=== PATIENT | female | born 1940 | race Caucasian/White ===

== ENCOUNTER 2021-06-18 13:18 | Inpatient (IN) ==
[2021-06-18] MEDS ORDERED: MORPHINE 2 MG/1 ML SYRINGE IV STA (14:27)
[2021-06-18] MEDS ORDERED: ONDANSETRON 4 MG/2 ML VIAL IV STA (14:27)
[2021-06-18 14:52] LABS: Basophils # 0.1 10*3/uL (0.0-0.2); Basophils % 0.4 % (0.0-0.8); Eosinophils # 0.1 10*3/uL (0.0-0.87); Eosinophils % 0.4 % (0.00-10.9); Hematocrit 45.1 VOL% (35.7-47.0); Hemoglobin 13.8 GM/DL (12.0-16.0); Immature Granulocytes % 0.5 %; Immature Granulocytes Absolute 0.08 #; Lymphocytes # 1.2 10*3/uL (1.4-4.0); Lymphocytes % 8.2 % (21.3-54.2); Mean Corpuscular HGB Conc 30.6 GM/DL (32-36); Mean Corpuscular Volume 94.4 FL (87-102); Mean Platelet Volume 10.2 FL (9.6-12.0); Monocytes % 4.2 % (1.7-12.7); Neutrophils % 86.3 % (38.7-73.9); Platelet Count 236 T/CUMM (130-400); Red Blood Count 4.78 MC/CUMM (3.8-5.5); Red Cell Distribution Width 13.6 % (9.3-17.3); White Blood Count 14.6 T/CUMM (4-12)
[2021-06-18 15:04] LABS: INR 0.9; PT Patient Result 10.7 SECS (10.5-12.0); Partial Thromboplastin Time 25.9 SECS (23.8-32.1)
[2021-06-18 15:10] LABS: Albumin 3.4 G/DL (3.4-5.0); Bilirubin,Total 2.2 MG/DL (0.20-1.00); Calcium 10.2 MG/DL (8.5-10.1); Osmolality,Calculated 288.8 MOS/KG (273-304); Potassium 4.1 MMOL/L (3.5-5.1); Total Protein 6.8 G/DL (6.4-8.2)
[2021-06-18] MEDS ORDERED: MORPHINE 2 MG/1 ML SYRINGE IV PRN ×2 (15:31→15:58)
[2021-06-18] MEDS ORDERED: CALCIUM CARBONATE CHEW 500 MG TABLET PO PRN (15:31)
[2021-06-18] MEDS ORDERED: ALBUTEROL/IPRATROPIUM 3 ML NEB RESP TX PRN (15:31)
[2021-06-18] MEDS ORDERED: ONDANSETRON 4 MG/2 ML VIAL IV PRN (15:31)
[2021-06-18] MEDS ORDERED: SIMETHICONE CHEW 125 MG TABLET PO PRN (15:31)
[2021-06-18] MEDS ORDERED: GLUCAGON 1 MG VIAL IM PRN (15:31)
[2021-06-18] MEDS ORDERED: ACETAMINOPHEN 325 MG TABLET PO PRN (15:31)
[2021-06-18] MEDS: LACTATED RINGERS 1,000 ML IV SCH (17:21)
[2021-06-18] MEDS: PANTOPRAZOLE 40 MG TABLET PO SCH (17:57)
[2021-06-18] MEDS ORDERED: INFLUENZA VIRUS VACCINE 0.5 ML SYRINGE IM ONE (19:26)
[2021-06-18] MEDS: MORPHINE 2 MG/1 ML SYRINGE IV PRN (20:42)
[2021-06-18] MEDS: DOCUSATE SODIUM 100 MG CAPSULE PO SCH (20:42)
[2021-06-19] MEDS: LACTATED RINGERS 1,000 ML IV SCH ×3 (03:26→21:41)
[2021-06-19 05:56] LABS: Basophils # 0.1 10*3/uL (0.0-0.2); Basophils % 0.4 % (0.0-0.8); Eosinophils # 0.1 10*3/uL (0.0-0.87); Eosinophils % 0.6 % (0.00-10.9); Hematocrit 45.5 VOL% (35.7-47.0); Hemoglobin 13.3 GM/DL (12.0-16.0); Immature Granulocytes % 0.7 %; Immature Granulocytes Absolute 0.09 #; Lymphocytes % 14.3 % (21.3-54.2); Mean Corpuscular HGB Conc 29.2 GM/DL (32-36); Platelet Count 198 T/CUMM (130-400); Red Blood Count 4.55 MC/CUMM (3.8-5.5); White Blood Count 13.8 T/CUMM (4-12)
[2021-06-19 05:59] LABS: Albumin 3.2 G/DL (3.4-5.0); Bilirubin,Total 2.2 MG/DL (0.20-1.00); Osmolality,Calculated 284.3 MOS/KG (273-304); Potassium 4.4 MMOL/L (3.5-5.1); Total Protein 6.9 G/DL (6.4-8.2)
[2021-06-19] MEDS ORDERED: ROCURONIUM 50 MG/5 ML VIAL IV ONE (06:01)
[2021-06-19] MEDS ORDERED: MIDAZOLAM 2 MG/2 ML VIAL ONE (06:01)
[2021-06-19] MEDS ORDERED: SUCCINYLCHOLINE 200 MG/10 ML VIAL ONE (06:01)
[2021-06-19] MEDS ORDERED: SEVOFLURANE 1 UNIT/15 MINUTE INH ONE (06:01)
[2021-06-19] MEDS ORDERED: propofoL 200 MG/20 ML VIAL IV ONE (06:01)
[2021-06-19] MEDS ORDERED: LIDOCAINE 2% 5 ML VIAL ONE ×2 (06:01→06:33)
[2021-06-19] MEDS ORDERED: ONDANSETRON 4 MG/2 ML VIAL ONE (06:01)
[2021-06-19] MEDS ORDERED: fentaNYL 100 MCG/2 ML VIAL ONE (06:02)
[2021-06-19] MEDS ORDERED: DEXAMETHASONE 4 MG/1 ML VIAL ONE (06:03)
[2021-06-19] MEDS ORDERED: ceFAZolin 2,000 MG/50 ML DUPLEX IV ONE (06:30)
[2021-06-19] MEDS ORDERED: ROPIVACAINE 0.5% 30 ML VIAL ONE (06:33)
[2021-06-19] MEDS ORDERED: BUPIVACAINE SPINAL 0.75% 2 ML AMP SPINAL ONE (06:53)
[2021-06-19] MEDS ORDERED: KETAMINE 500 MG/10 ML VIAL ONE (06:56)
[2021-06-19] MEDS ORDERED: ePHEDrine 50 MG/ML VIAL ONE (07:36)
[2021-06-19] MEDS ORDERED: ceFAZolin 1,000 MG VIAL ONE (07:40)
[2021-06-19] MEDS ORDERED: TRANEXAMIC ACID 1,000 MG/10 ML VIAL ONE (08:00)
[2021-06-19] MEDS ORDERED: BACITRACIN OINT 0.9 GM PACK TOP ONE (08:02)
[2021-06-19] MEDS ORDERED: SODIUM CHLORIDE 0.9% 100 ML IV ONE (08:10)
[2021-06-19] MEDS ORDERED: MAGNESIUM HYDROXIDE SUSP 30 ML UDCUP PO PRN (09:48)
[2021-06-19] MEDS: DOCUSATE SODIUM 100 MG CAPSULE PO SCH ×2 (11:00→20:56)
[2021-06-19] MEDS: PANTOPRAZOLE 40 MG TABLET PO SCH (11:01)
[2021-06-19] MEDS ORDERED: TUBERCULIN SKIN TEST 0.1 ML SYRINGE INTRADERM ONE (14:04)
[2021-06-19] MEDS: amLODIPine 5 MG TABLET PO SCH (20:54)
[2021-06-19] MEDS: BISOPROLOL 5 MG TABLET PO SCH (20:54)
[2021-06-19] MEDS: ATORVASTATIN 20 MG TABLET PO SCH (20:56)
[2021-06-19] MEDS: ESCITALOPRAM 10 MG TABLET PO SCH (20:56)
[2021-06-20] MEDS: FONDAPARINUX 2.5 MG/0.5 ML SYRINGE SUBCUT SCH (05:07)
[2021-06-20 06:16] LABS: Calcium 9.6 MG/DL (8.5-10.1); Osmolality,Calculated 288.1 MOS/KG (273-304); Potassium 4.7 MMOL/L (3.5-5.1)
[2021-06-20 06:54] LABS: Basophils % 0.1 % (0.0-0.8); Hematocrit 32.6 VOL% (35.7-47.0); Hemoglobin 9.7 GM/DL (12.0-16.0); Immature Granulocytes % 0.6 %; Immature Granulocytes Absolute 0.08 #; Lymphocytes # 1.4 10*3/uL (1.4-4.0); Lymphocytes % 10.7 % (21.3-54.2); Mean Corpuscular HGB Conc 29.8 GM/DL (32-36); Mean Corpuscular Volume 99.1 FL (87-102); Mean Platelet Volume 10.7 FL (9.6-12.0); Monocytes % 12.9 % (1.7-12.7); Neutrophils % 75.7 % (38.7-73.9); Platelet Count 179 T/CUMM (130-400); Red Blood Count 3.29 MC/CUMM (3.8-5.5); White Blood Count 12.9 T/CUMM (4-12)
[2021-06-20] MEDS: DOCUSATE SODIUM 100 MG CAPSULE PO SCH ×2 (08:47→21:55)
[2021-06-20] MEDS: PANTOPRAZOLE 40 MG TABLET PO SCH (08:47)
[2021-06-20] MEDS: LACTATED RINGERS 1,000 ML IV SCH ×3 (09:41→22:03)
[2021-06-20] MEDS: ESCITALOPRAM 10 MG TABLET PO SCH (21:55)
[2021-06-20] MEDS: ATORVASTATIN 20 MG TABLET PO SCH (21:55)
[2021-06-20] MEDS: amLODIPine 5 MG TABLET PO SCH (21:56)
[2021-06-20] MEDS: BISOPROLOL 5 MG TABLET PO SCH (22:06)
[2021-06-21] MEDS: FONDAPARINUX 2.5 MG/0.5 ML SYRINGE SUBCUT SCH (06:06)
[2021-06-21 06:20] LABS: Basophils % 0.3 % (0.0-0.8); Eosinophils # 0.5 10*3/uL (0.0-0.87); Eosinophils % 4.2 % (0.00-10.9); Hematocrit 31.6 VOL% (35.7-47.0); Hemoglobin 9.3 GM/DL (12.0-16.0); Immature Granulocytes % 0.4 %; Immature Granulocytes Absolute 0.05 #; Lymphocytes # 2.1 10*3/uL (1.4-4.0); Lymphocytes % 16.9 % (21.3-54.2); Mean Corpuscular HGB Conc 29.4 GM/DL (32-36); Mean Corpuscular Volume 99.7 FL (87-102); Mean Platelet Volume 10.8 FL (9.6-12.0); Monocytes % 11.1 % (1.7-12.7); Neutrophils % 67.1 % (38.7-73.9); Platelet Count 167 T/CUMM (130-400); Red Blood Count 3.17 MC/CUMM (3.8-5.5); Red Cell Distribution Width 13.8 % (9.3-17.3); White Blood Count 12.2 T/CUMM (4-12)
[2021-06-21] MEDS: LACTATED RINGERS 1,000 ML IV SCH (06:37)
[2021-06-21 06:45] LABS: Calcium 9.7 MG/DL (8.5-10.1); Osmolality,Calculated 278.7 MOS/KG (273-304); Potassium 4.8 MMOL/L (3.5-5.1)
[2021-06-21] MEDS: PANTOPRAZOLE 40 MG TABLET PO SCH (10:10)
[2021-06-21] MEDS: DOCUSATE SODIUM 100 MG CAPSULE PO SCH ×2 (10:10→21:09)
[2021-06-21] MEDS: MORPHINE 2 MG/1 ML SYRINGE IV PRN (12:33)
[2021-06-21] MEDS: ENOXAPARIN 40 MG/0.4 ML SYRINGE SUBCUT SCH (21:09)
[2021-06-21] MEDS: amLODIPine 5 MG TABLET PO SCH (21:09)
[2021-06-21] MEDS: BISOPROLOL 5 MG TABLET PO SCH (21:10)
[2021-06-21] MEDS: ATORVASTATIN 20 MG TABLET PO SCH (21:10)
[2021-06-21] MEDS: ESCITALOPRAM 10 MG TABLET PO SCH (21:10)
[2021-06-22 05:27] LABS: Basophils % 0.4 % (0.0-0.8); Eosinophils # 0.6 10*3/uL (0.0-0.87); Eosinophils % 6.1 % (0.00-10.9); Hematocrit 29.9 VOL% (35.7-47.0); Hemoglobin 8.8 GM/DL (12.0-16.0); Immature Granulocytes % 0.4 %; Immature Granulocytes Absolute 0.04 #; Lymphocytes # 1.5 10*3/uL (1.4-4.0); Lymphocytes % 15.6 % (21.3-54.2); Mean Corpuscular HGB Conc 29.4 GM/DL (32-36); Mean Corpuscular Volume 98.7 FL (87-102); Mean Platelet Volume 10.5 FL (9.6-12.0); Monocytes % 10.6 % (1.7-12.7); Neutrophils % 66.9 % (38.7-73.9); Platelet Count 165 T/CUMM (130-400); Red Blood Count 3.03 MC/CUMM (3.8-5.5); Red Cell Distribution Width 13.7 % (9.3-17.3); White Blood Count 9.9 T/CUMM (4-12)
[2021-06-22 05:46] LABS: Calcium 9.7 MG/DL (8.5-10.1); Osmolality,Calculated 286.1 MOS/KG (273-304); Potassium 4.6 MMOL/L (3.5-5.1)
[2021-06-22] MEDS: DOCUSATE SODIUM 100 MG CAPSULE PO SCH ×2 (08:54→21:25)
[2021-06-22] MEDS: PANTOPRAZOLE 40 MG TABLET PO SCH (08:55)
[2021-06-22] MEDS: ATORVASTATIN 20 MG TABLET PO SCH (21:25)
[2021-06-22] MEDS: BISOPROLOL 5 MG TABLET PO SCH (21:26)
[2021-06-22] MEDS: ESCITALOPRAM 10 MG TABLET PO SCH (21:26)
[2021-06-22] MEDS: ENOXAPARIN 40 MG/0.4 ML SYRINGE SUBCUT SCH (21:26)
[2021-06-22] MEDS: amLODIPine 5 MG TABLET PO SCH (21:26)
[2021-06-23 06:45] LABS: Calcium 10.3 MG/DL (8.5-10.1); Osmolality,Calculated 281.4 MOS/KG (273-304); Potassium 4.5 MMOL/L (3.5-5.1)
[2021-06-23 06:49] LABS: Basophils # 0.1 10*3/uL (0.0-0.2); Basophils % 0.5 % (0.0-0.8); Eosinophils # 0.4 10*3/uL (0.0-0.87); Eosinophils % 4.6 % (0.00-10.9); Hematocrit 32.2 VOL% (35.7-47.0); Hemoglobin 9.6 GM/DL (12.0-16.0); Lymphocytes # 1.7 10*3/uL (1.4-4.0); Lymphocytes % 18.7 % (21.3-54.2); Mean Corpuscular HGB Conc 29.8 GM/DL (32-36); Mean Corpuscular Volume 99.4 FL (87-102); Mean Platelet Volume 10.6 FL (9.6-12.0); Monocytes % 8.9 % (1.7-12.7); Neutrophils % 66.9 % (38.7-73.9); Platelet Count 192 T/CUMM (130-400); Red Blood Count 3.24 MC/CUMM (3.8-5.5); Red Cell Distribution Width 13.7 % (9.3-17.3); White Blood Count 9.3 T/CUMM (4-12)
[2021-06-23] MEDS: DOCUSATE SODIUM 100 MG CAPSULE PO SCH (09:39)
[2021-06-23] MEDS: PANTOPRAZOLE 40 MG TABLET PO SCH (09:39)
[2021-06-23 11:31] VITALS: BP 130/61
== END 2021-06-23 19:03 | DRG 481 ==
LOC: EDUNIT# → EDBD → N.ED 13:18 → N.3E 15:31 → SUATTDRO 15:31 → N.3E 17:08
PROVIDERS: ADMIT Internal Medicine; ATTEND Internal Medicine